=== PATIENT | male | born 1960 | race Caucasian/White ===

== ENCOUNTER 2019-06-29 11:28 | Emergency (ER) | payer OTHER ==
[2019-06-29] MEDS ORDERED: ceFAZolin 1,000 MG VIAL (IM USE) IM STA (12:02)
[2019-06-29] MEDS ORDERED: MORPHINE SULFATE 4 MG/ML SYRINGE IVP STA (12:07)
[2019-06-29] MEDS ORDERED: LIDOCAINE 1% INJ 10MG/ML (20 ML MDV) SQ ONE (12:07)
[2019-06-29] MEDS ORDERED: SODIUM CHLORIDE 0.9% IRRIG 1,000 ML BTL IRRIGATION ONE (12:08)
--- NOTE | 2019-06-29 12:26 | XR ---
EXAMINATION TYPE: XR finger LT DATE OF EXAM: 06/29/2019 COMPARISON: NONE HISTORY: Laceration TECHNIQUE: Three views are submitted. FINDINGS: There is a comminuted fracture of the distal phalanx first digit with dislocation and partial amputat ion of the soft tissues. There appears to be a comminuted fracture involving the distal margin of the proximal phalanx. IMPRESSION: 1. Large soft tissue laceration with comminuted fracture of the distal phalanx first digit and marked displacement of the remaining fracture fragments dislocated from the joint space. 2. Comminuted fracture distal margin proximal phalanx first digit.
--- NOTE | 2019-06-29 12:33 | ED ---
General Adult HPI - General Chief complaint: Wound/Laceration Stated complaint: Thumb laceration Time Seen by Provider: 06/29/19 11:53 Source: patient, RN notes reviewed Mode of arrival: ambulatory Limitations: no limitations - History of Present Illness Initial comments: 58-year-old male with a past medical history of hypertension presents to the emergency department for a chief complaint of left thumb laceration. Patient was using a table saw to cut small pieces of wood when he accidentally cut his left thumb. States his tetanus is up-to-date as of several months ago. Patient states he also has a laceration to the left index finger. Denies any other injuries. Denies diabetes. Patient does state that his left hand is his dominant hand.Patient has no other complaints at this time including shortness of breath, chest pain, abdominal pain, nausea or vomiting, headache, or visual changes. - Related Data Home Medications Medication Instructions Recorded Confirmed Aspirin 81 mg PO DAILY 03/01/15 06/29/19 Multivitamin [Men's Multi-Vitamin] 1 each PO DAILY 03/01/15 06/29/19 Fenofibrate Nanocrystallized 48 mg PO DAILY 06/29/19 06/29/19 [Tricor] Glucosamine Sulfate 500 mg PO DAILY 06/29/19 06/29/19 Lisinopril [Zestril] 10 mg PO DAILY 06/29/19 06/29/19 Niacin [Niacin ER] 500 mg PO DAILY 06/29/19 06/29/19 [place]-3 Fatty Acids/Fish Oil [Fish 1 cap PO DAILY 06/29/19 06/29/19 Oil 1,000 mg Softgel] Ubidecarenone [Co Q-10] 200 mg PO DAILY 06/29/19 06/29/19 Previous Rx's Medication Instructions Recorded Cephalexin [Keflex] 500 mg PO Q6HR 10 Days #40 cap 06/29/19 HYDROcodone/APAP 5-325MG [[place] 1 tab PO Q6HR PRN #10 tab 06/29/19 5-325] Allergies Allergy/AdvReac Type Severity Reaction Status Date / Time No Known Allergies Allergy Verified 06/29/19 12:01 Review of Systems ROS Statement: Those systems with pertinent positive or pertinent negative responses have been documented in the HPI. ROS Other: All systems not noted in ROS Statement are negative. Past Medical History Past Medical History: Hypertension History of Any Multi-Drug Resistant Organisms: None Reported Past Surgical History: Tonsillectomy Past Anesthesia/Blood Transfusion Reactions: No Reported Reaction Past Psychological History: No Psychological Hx Reported Smoking Status: Former smoker Past Alcohol Use History: Occasional Past Drug Use History: None Reported - Past Family History Mother Family Medical History: No Reported History General Exam - General Exam Comments Initial Comments: Left second digit: Patient has laceration of the middle phalanx of the dorsal left second digit. This is extending about 3 cm however most of the laceration is superficial. There is about a 1 cm area requiring sutures. Patient has full range of motion of the left second digit. Capillary refill is less than 2 seconds. Sensation is intact. Limitations: no limitations General appearance: alert, in no apparent distress Head exam: Present: atraumatic, normocephalic, normal inspection Eye exam: Present: normal appearance, PERRL, EOMI. Absent: scleral icterus, conjunctival injection, periorbital swelling ENT exam: Present: normal exam, mucous membranes moist Neck exam: Present: normal inspection, full ROM. Absent: tenderness, meningismus, lymphadenopathy Respiratory exam: Present: normal lung sounds bilaterally. Absent: respiratory distress, wheezes, rales, rhonchi, stridor Cardiovascular Exam: Present: regular rate, normal rhythm, normal heart sounds. Absent: systolic murmur, diastolic murmur, rubs, gallop, clicks Extremities exam: Present: normal capillary refill (Capillary refill is less than 2 seconds in the palmar aspect of the left thumb. Dorsal aspect of the left thumb is dusky.), other (Sensation is intact to the palmar aspect of the left thumb however not the dorsal aspect.). Absent: normal inspection (Patient has a laceration extending through the distal tip of the left thumb through the finger pad to the IP joint.), full ROM (Volar aspect of the left thumb does flex and patient boxes however the dorsal aspect does not flex. Patient is unable to move this.) Neurological exam: Present: alert Course Vital Signs 06/29/19 11:37 Temperature 97.5 F L Pulse Rate 91 Respiratory 18 Rate Blood Pressure 130/87 O2 Sat by Pulse 99 Oximetry - Reevaluation(s) Reevaluation #1: 06/29/19 12:33 Patient was given antibiotics within 50 minutes of arrival. Patient refused pain medication although it was offered. Procedures - Laceration Laceration #1 Consent Obtained: verbal consent Indication: laceration Site: other (thumb Left) Description: flap, irregular Depth: involves muscle layer, [id number] Anesthetic Used: lidocaine 1% Anesthesia Technique: nerve block Amount (mls): 5 Pre-repair: wound explored, irrigated extensively (with 2 L saline irrigation and well as pressure saline irrigation) Type of Sutures: other (ethilob) Size of Sutures: 5-0 Number of Sutures: 3 Technique: simple, interrupted Patient Tolerated Procedure: well, no complications Laceration #2 Consent Obtained: verbal consent Indication: laceration Site: other (L 2nd finger) Description: linear Depth: simple, single layer Anesthetic Used: lidocaine 1% Anesthesia Technique: local infiltration Amount (mls): 2 Pre-repair: wound explored, irrigated extensively (with saline pressure irrigation) Type of Sutures: other (ethilon) Size of Sutures: 5-0 Number of Sutures: 2 Technique: simple, interrupted Patient Tolerated Procedure: well, no complications Medical Decision Making - Medical Decision Making X-ray of the left thumb reveals a large soft tissue laceration with comminuted fracture of the distal phalanx first digit and marked displacement of the remaining fracture fragments dislocated from the joint space. There is a comminuted fracture distal margin proximal phalanx first digit. Patient was given Ancef within 50 minutes of arrival. I spoke with Snehal Marlow who spoke with Dr. Dowling. Recommends tacking wound together and seeing him tomorrow in the office. I did perform ample irrigation with 2 L of saline as well as saline pressure irrigation. I did apply 3 stitches to partially approximate the wound. I also sutured a laceration on the left second digit. Patient was eventually given pain medication but refused initially. Patient will be put on Keflex as well as [place]. He will follow up with Dr. Dowling tomorrow. This was stressed to him. He will return here if he has any worsening symptoms.I discussed this case with attending Dr. Anand who agrees with this assessment and treatment plan. Disposition Clinical Impression: Laceration, Open fracture of left thumb Disposition: HOME SELF-CARE Condition: Good Instructions (If sedation given, give patient instructions): Care For Your Stitches (ED), Laceration (ED) Additional Instructions: Please keep area dry. Call Dr. Dowling this afternoon or first thing tomorrow morning. He wants to see you in the office tomorrow. Be sure to tell this to office staff. Take antibiotic as directed. Take [place] for pain. Rest ice and elevate the left hand. Return if you have any worsening symptoms. Prescriptions: Cephalexin [Keflex] 500 mg PO Q6HR 10 Days #40 cap HYDROcodone/APAP 5-325MG [[place] 5-325] 1 tab PO Q6HR PRN #10 tab PRN Reason: Pain Is patient prescribed a controlled substance at d/c from ED?: Yes When asked, does pt state using other controlled substances?: No If prescribed controlled substance>3 days was MAPS reviewed?: Prescribed <3 Days If opioid is for acute pain is fill amount 7 days or less?: Yes If Rx opioid, was Start Talking consent form obtained?: Yes Referrals: Shan Bennett III, MD [Primary Care Provider] - 1-2 days Wilmar Dowling DO [Medical Doctor] - 1-2 days Time of Disposition: 13:21
[2019-06-29 13:54] VITALS: BP 128/68; PULSE 77; RESP 19; TEMP 98.1
== END 2019-06-29 13:55 | disposition home or self-care (01) ==
LOC: EC 11:28
DX: S62.522B Displaced fracture of distal phalanx of left thumb, initial encounter for open fracture (principal); S61.211A Laceration without foreign body of left index finger without damage to nail, initial encounter; I10 Essential (primary) hypertension; Z79.82 Long term (current) use of aspirin; Z79.899 Other long term (current) drug therapy; Z87.891 Personal history of nicotine dependence; W31.2XXA Contact with powered woodworking and forming machines, initial encounter
CPT/HCPCS: 73140; 99283; 12001; 96374; 96372; J2270; J0690; J2001

== ENCOUNTER → 2019-07-01 | Outpatient (CLI) | payer OTHER | END | disposition home or self-care (01) | LOC: LABWHC1 10:18 | PROVIDERS: ATTEND Orthopaedic Surgery | DX: E55.9 Vitamin D deficiency, unspecified (principal); M79.645 Pain in left finger(s) | CPT/HCPCS: 36415; 82306 ==

== ENCOUNTER → 2020-09-22 | Day surgery (SDC) | payer OTHER ==
[2020-09-19 15:34] VITALS: BMI 32.5
[~2020-09-22] MED LIST: LACTATED RINGERS 1,000 ML IV SCH; LIDOCAINE 1% (10MG/ML) FOR IV START INTRADERMA PRN; MIDAZOLAM 2 MG/2 ML VIAL ONE; PROPOFOL 10 MG/ML 20 ML VIAL IV ONE; fentaNYL (PF) 50 MCG/ML 2 ML AMP ONE
[2020-09-22 08:34] VITALS: TEMP 97.3
--- NOTE | 2020-09-22 09:14 | P.GSHP ---
History of Present Illness H&P Date: 09/22/20 Chief Complaint: History of colon polyps This is a 59-year-old male who presents today for colonoscopy patient. History of polyps on colonoscopy. He denies a significant GI complaints. Past Medical History Past Medical History: Hypertension Additional Past Medical History / Comment(s): hx of polyps History of Any Multi-Drug Resistant Organisms: None Reported Past Surgical History: Orthopedic Surgery, Tonsillectomy Additional Past Surgical History / Comment(s): colonoscopy, left thumb pins, now removed Past Anesthesia/Blood Transfusion Reactions: No Reported Reaction Smoking Status: Current some day smoker - Past Family History Mother Family Medical History: No Reported History Medications and Allergies Home Medications Medication Instructions Recorded Confirmed Type Aspirin 81 mg PO DAILY 03/01/15 09/22/20 History Multivitamin [Men's Multi-Vitamin] 1 each PO DAILY 03/01/15 09/22/20 History Fenofibrate Nanocrystallized 48 mg PO DAILY 06/29/19 09/22/20 History [Tricor] Glucosamine Sulfate 500 mg PO DAILY 06/29/19 09/22/20 History [place]-3 Fatty Acids/Fish Oil [Fish 1 cap PO DAILY 06/29/19 09/22/20 History Oil 1,000 mg Softgel] Ubidecarenone [Co Q-10] 200 mg PO DAILY 06/29/19 09/22/20 History lisinopriL [Zestril] 10 mg PO QAM 06/29/19 09/22/20 History Allergies Allergy/AdvReac Type Severity Reaction Status Date / Time No Known Allergies Allergy Verified 09/19/20 15:29 Surgical - Exam Vital Signs Temp Pulse Resp BP Pulse Ox 97.3 F L 79 16 151/88 95 09/22/20 08:31 09/22/20 08:31 09/22/20 08:31 09/22/20 08:31 09/22/20 08:31 - General well developed, well nourished, no distress - Eyes PERRL - ENT normal pinna - Neck no masses - Respiratory normal expansion - Cardiovascular Rhythm: regular - Abdomen Abdomen: soft, non tender, tender Assessment and Plan Assessment: History of colon polyps. We'll perform colonoscopy.
--- NOTE | 2020-09-22 09:33 | P.OP ---
Date of Procedure: 09/22/20 Preoperative Diagnosis: History of colon polyps Postoperative Diagnosis: Transverse colon polyp Procedure(s) Performed: Colonoscopy Anesthesia: GETA Condition: stable Disposition: PACU Description of Procedure: The patient's placed on the endoscopy table in the lateral position. He received IV sedation. Digital rectal exam was performed which revealed no abnormalities. The flexible colonoscope was then placed patient anus and passed throughout the entire colon. The ileocecal valve was visualized. The cecum, ascending colon appeared normal. In the transverse colon there was a small sessile polyp this was removed with the cold forcep. The remainder of the transverse colon, descending colon and sigmoid colon appeared normal. The rectum was normal as well. Scope was withdrawn for patient.
[2020-09-22 09:40] VITALS: RESP 18
[2020-09-22 09:59] VITALS: BP 103/73; PULSE 65
== END ==
LOC: ORWHC2ENDO 07:45
PROVIDERS: ATTEND Surgery
DX: Z12.11 Encounter for screening for malignant neoplasm of colon (principal); K63.5 Polyp of colon; Z86.010 Personal history of colon polyps; I10 Essential (primary) hypertension; F17.200 Nicotine dependence, unspecified, uncomplicated; Z79.82 Long term (current) use of aspirin; Z79.899 Other long term (current) drug therapy; Z90.89 Acquired absence of other organs; Z98.890 Other specified postprocedural states
CPT/HCPCS: 88305; 45380; J2250; J3010; J2704